=== PATIENT | female | born 1960 | race Caucasian/White ===

== ENCOUNTER 2018-03-17 23:35 | Emergency (ER) | END 2018-03-18 01:22 | disposition home or self-care (01) ==

== ENCOUNTER 2018-11-21 02:23 | Emergency (ER) | payer OTHER ==
[~2018-11-21] VITALS: Ht 154.9 cm; Wt 57.4 kg
[~2018-11-21 02:23] MED LIST: DIAZ5TAB PO; NAPR-985 PO; OXYC-279 PO
[2018-11-21 02:26] VITALS: BP 139/79; PULSE 110; RESP 19; Ht 154.9 cm; Wt 57.4 kg
--- NOTE | 2018-11-21 04:03 | ERD ---
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 The patient has been taking [place] without improvement of the symptoms. She denies any recent trauma, no reports of incontinence, rashes, fever or abdominal pain. ROS All systems reviewed and are negative except as per history of present illness. Medications Home Meds Active Scripts Prednisone* (Prednisone*) 20 Mg Tab, 40 MG PO DAILY for 5 Days, TAB Prov:TABITHA HARVEY MD 11/21/18 Tramadol HCl (Tramadol HCl) 50 Mg Tablet, 50 MG PO QHS PRN for PAIN, #7 TAB Prov:TABITHA HARVEY MD 11/21/18 Naproxen* (Naprosyn*) 500 Mg Tablet, 500 MG PO BID PRN for PAIN AND/OR INFLAMMATION, #30 TAB Prov:CHERYL LOPES PA-C 03/18/18 Oxycodone HCl/Acetaminophen (Percocet 5-325 mg Tablet) 1 Each Tablet, 1 EACH PO QHS, #10 TAB Prov:CHERYL LOPES PA-C 03/18/18 Diazepam* (Valium*) 5 Mg Tablet, 5 MG PO Q8, #10 TAB Prov:CHERYL LOPES PA-C 03/18/18 Allergies Allergies: Coded Allergies: No Known Allergy (Unverified , 11/21/18) PMhx/Soc History of Surgery: Yes (bilat wrists, gall bladder) Anesthesia Reaction: No Hx Neurological Disorder: Yes (Seizures) Hx Respiratory Disorders: No Hx Cardiac Disorders: No Hx Psychiatric Problems: Yes (Bipolar, anxiety) Hx Miscellaneous Medical Probl: No Hx Alcohol Use: Yes (Every now and then) Hx Substance Use: Yes (marijuana oil) Hx Tobacco Use: Yes (Quit cigarettes 2015) FmHx Family History: No diabetes, No coronary disease Physical Exam Vitals Vital Signs Date Temp Pulse Resp B/P (MAP) Pulse Ox O2 O2 Flow FiO2 Time Delivery Rate 11/21/18 98.5 110 19 139/79 96 02:26 (99) Physical Exam Const: No acute distress Head: Atraumatic Eyes: Normal Conjunctiva ENT: Normal External Ears, Nose and Mouth. Neck: Full range of motion. No meningismus. Resp: Clear to auscultation bilaterally Cardio: Regular rate and rhythm, no murmurs Abd: Soft, non tender, non distended. Normal bowel sounds Skin: No petechiae or rashes Back: No midline or flank tenderness Ext: No cyanosis, or edema Neur: Awake and alert Psych: Normal Mood and Affect Results 24 hrs Current Medications Medications Dose Sig/Jose Start Time Status Last (Trade) Ordered Route PRN Stop Time Admin Dose Reason Admin Ketorolac 15 mg ONCE STAT 11/21/18 DC 11/21/18 Tromethamine IM 04:08 04:13 (Toradol) 11/21/18 04:10 Procedures/MDM At the time of discharge, patient nontoxic, ambulating, vital signs stable, no gross neurologic deficit. differential diagnosis include but not limited to: lumbar sprain/strain, sciatica, herniated disk, UTI less likely pyelo, kidney stone. Neurovascular exam grossly intact. no clinical findings suggestive of acute infectious process, no acute deformity, no edema, no rashes. Physical examination and clinical presentation consistent most likely with acute on chronic back pain. Results and clinical impression discussed with the patient who agrees with management. The patient is stable to be treated outpatient and will be disch arged home with recommendations and close monitoring The patient was informed that the evaluation in the emergency department has been done to rule out an acute emergency, therefore, chronic conditions like malignancy or autoimmune diseases have not been evaluated; therefore, the patient was instructed to follow up with the primary care provider in the next 48h. If symptoms persist, worsen or new symptoms develop, then patient should return to the ED immediately. Instructions explained and given to patient with acknowledgment and demonstrated understanding. Disclaimer: Inadvertent spelling and grammatical errors are likely due to EHR/dictation software use and do not reflect on the overall quality of patient care. Also, please note that the electronic time recorded on this note does not necessarily reflect the actual time of the patient encounter. Departure Diagnosis: Primary Impression: Acute exacerbation of chronic low back pain Condition: Stable Additional Instructions: Thank you very much for allowing us to participate in your care. Your health and safety is our top priority at [facility]. The evaluation in the emergency department has been done to rule out an acute emergency, therefore, chronic conditions like malignancy or other diseases have not been evaluated; therefore, you need to follow up with a primary care provider in the next 48h. If symptoms persist, worsen or new symptoms develop, then patient should return to the ED immediately. Call your primary care doctor TOMORROW for an appointment during the next 2-4 days and bring all the information provided. Have prescriptions filled and follow precisely the directions on the label. If the symptoms get worse and your provider is unavailable, return to the Emergency Department immediately. TABITHA HRAVEY MD Nov 21, 2018 04:03
[2018-11-21] MEDS ORDERED: KETOROLAC 15 MG INJ IM STA (04:08)
[2018-11-21] MEDS ORDERED: PRED20TA PO (04:11)
[2018-11-21] MEDS ORDERED: TRAM50TA2 PO (04:11)
== END 2018-11-21 04:50 | disposition home or self-care (01) ==
LOC: FTE 02:23
DX: M54.5 Low back pain (principal); Z87.891 Personal history of nicotine dependence
CPT/HCPCS: 96372; J1885